=== PATIENT | female | born 1950 | race Caucasian/White ===

== ENCOUNTER 2024-02-24 10:23 | Day surgery (SDC) | payer OTHER, SELFPAY ==
[2024-02-24 10:45] LABS: Hematocrit 37.7 % (37.0-47.0); Hemoglobin 12.8 g/dL (12.0-16.0); Mean Corpuscular Hgb 29.7 pg (27.0-31.0); Mean Corpuscular Volume 87.5 fL (81.0-99.0); Platelet Count 296 10^3/uL (130-400); Red Blood Cell Count 4.31 10^6/uL (4.20-5.40); Red Cell Dist. Width 12.1 % (11.5-14.5); White Blood Cell Count 5.5 10^3/uL (4.8-10.8)
[2024-02-24 11:12] VITALS: BMI 28.2
[2024-02-24 11:13] LABS: Blood Urea Nitrogen 7 mg/dl (7-17); Calcium 9.5 mg/dl (8.4-10.2); Carbon Dioxide 32 mmol/L (22-30); Chloride 92 mmol/L (98-107); Glucose 131 mg/dl (70-99); Potassium 4.2 mmol/L (3.5-5.1); Sodium 135 mmol/L (135-145); eGFR > 60.00
[2024-02-24 11:14] VITALS: BP 141/69
[2024-02-24 11:15] LABS: Glucose - Point of Care 100 mg/dl (70-99)
--- NOTE | 2024-02-24 14:55 | ITS.CL.PACE ---
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
Pacemaker Implant
Procedure Report:
Date of Procedure: February 24, 2024
Patient : 1950
Procedure: Pacemaker Implantation.
Indication: Unexplained syncope with cardiovascular collapse, sinus bradycardia, first-degree AV delay, left bundle branch block, periods of 2-1 and 3-2 AV block on telemetry
�
Implants:
Pulse Generator: [employer]; Model# W1 DR 01 SN: [id number]
RA Lead: Medtronic; Model# 4574; SN: [id number]
RV Lead: Medtronic; Model# 4074; SN: [id number]
�
Technique: A time out was performed. The procedure site was identified. The patient was anesthetized by the anesthesia service. Preoperative sedation was administered. The patient was prepped and draped in the usual fashion. Local anesthetic was
applied to the left prepectoral subcutaneous tissue. A 3 inch incision was made 2.5 inches below the left clavicle. A subcutaneous pocket was created with blunt and sharp dissection and hemostasis controlled with Bovie cautery. The left axillary
vein was accessed within the pocket without difficulty. Hemostasis was excellent. The leads were introduced with 7 Fr hemostatic peel away introducer sheaths. The ventricular lead was placed at the right ventricular apex. The atrial lead was placed
in the right atrial appendage. 10 volt pacing did not capture the diaphragm. The leads were secured to the pectoralis muscle and fascia. The leads were appropriately attached to the device. The pocket was irrigated with antibiotic solution. The
device and leads were placed in the pocket. The incision was closed in three layers with absorbable suture. The estimated blood loss was minimal. There were no complications.��
�
Lead Analysis:
RA lead: P: 2.3 mV; Threshold: 1.5 V @ 0.5��ms; Impedance: 930 ohms.
RV lead: R: 11 mV; Threshold: 0.5 V @ 0.5��ms; Impedance: 1150 ohms.
�
Final Programming: AAIR�DDDR 60-120 beats a minute
�
Conclusion: Uncomplicated Medtronic pacemaker implant.
�
Recommendation: Routine post pacemaker care.
�
[2024-02-24 15:25] VITALS: BP 102/66
[2024-02-24 15:40] VITALS: BP 115/71
[2024-02-24 16:00] VITALS: BP 128/66
[2024-02-24 16:56] LABS: Glucose - Point of Care 219 mg/dl (70-99)
[2024-02-24] MEDS: NOVOLOG FLEXPEN-MODERATE RESISTANCE 3 UNITS SC (17:34)
--- NOTE | 2024-02-24 17:56 | PTCARENOTE ---
Pt received from pharmacy laboratory technician post pacemaker insertion in left anterior chest. Aquacell dressing dry and intact, no sign of bleeding or hematoma. Pt denies any discomfort, up independently in room. Activity restrictions reviewed with pt with help of
multi mission helicopter aircrewman and demonstration, pt states understanding. Immobilizer in place. Telemetry shows occasional atrial paced rhythm with LBBB. Pt had CXR in department.
[2024-02-24 18:51] VITALS: BP 129/74
[2024-02-24] MEDS: TYLENOL 650 MG PO ×2 (19:25→23:26)
[2024-02-24] MEDS: TENORMIN 50 MG PO (19:26)
[2024-02-24] MEDS: ANCEF 5 IV (19:27)
[2024-02-24] MEDS: NORVASC 5 MG PO (21:56)
[2024-02-24 21:57] VITALS: BP 135/79
[2024-02-24] MEDS: XANAX 1 MG PO (21:58)
[2024-02-24 22:14] LABS: Glucose - Point of Care 179 mg/dl (70-99)
--- NOTE | 2024-02-24 22:21 | PTCARENOTE ---
Received patient at change of shift. Patient awake, alert, and oriented sitting in bed. Immobilizer on, Aquacel and steri strips over left wall site-- clean, dry, and intact. No swelling or ecchymosis around site. Patient c/o 5/10 pain at site--
Tylenol given-- see JUN. BP 129/74, A-paced with BBB, first degree block and prolonged QT, 92% on room air. Discussed plan of care and activity restrictions. Patient verbalized understanding. Call malin within reach.
[2024-02-25 03:17] VITALS: BP 117/75
[2024-02-25] MEDS: TYLENOL 650 MG PO ×2 (03:27→09:04)
[2024-02-25] MEDS: ANCEF 5 IV (03:28)
[2024-02-25] MEDS: FLUSH (NSS) 1 FLUSH IV (03:28)
[2024-02-25 04:05] LABS: Hematocrit 36.5 % (37.0-47.0); Hemoglobin 12.2 g/dL (12.0-16.0); Mean Corp Hgb Conc. 33.4 g/dL (33.0-37.0); Mean Corpuscular Hgb 29.6 pg (27.0-31.0); Mean Corpuscular Volume 88.6 fL (81.0-99.0); Mean Platelet Volume 9.3 fL (7.4-10.4); Platelet Count 285 10^3/uL (130-400); Red Blood Cell Count 4.12 10^6/uL (4.20-5.40); Red Cell Dist. Width 11.9 % (11.5-14.5)
[2024-02-25 04:38] LABS: Blood Urea Nitrogen 9 mg/dl (7-17); Carbon Dioxide 28 mmol/L (22-30); Chloride 94 mmol/L (98-107); Estimated Creatinine Clearance 80 ml/min; Glucose 159 mg/dl (70-99); Magnesium 1.8 mg/dl (1.6-2.3); Potassium 4.6 mmol/L (3.5-5.1); Sodium 133 mmol/L (135-145); eGFR > 60.00
--- NOTE | 2024-02-25 07:49 | W.PN.CARDCBS ---
Addendum entered and electronically signed by Sam Siu MD 02/25/24 09:51:
Patient seen and examined
Agree with ANESTHESIA ATTENDING note and assessment
Agree with ANESTHESIA ATTENDING plan
Exam:
Site clean dry and intact
Alert and x 3
Nonfocal neurologically
Cor regular
Abdomen soft nontender positive bowel sounds
Impresssion:
Syncope/SSS
post DC PPM 02/24/24
HTN
HLD
NIDDM
LBBB
Anxiety
GERD
Plan:
post device site stable
tele Apaced with LBBB
CXR no PTX
Hold Metformin 48 hours post procedure
Activity restrictions reviewed with diplomatic interpreter/translator
inc check DCA 1 week
continue cardiac care with Dr. Epstein
home today
Original Note:
Today's Communication / Plan
-
stable for d/c home
Impression / Plan
-
PCP: Dr. eMdina
CDY: Dr. Epstein
Impresssion:
Syncope/SSS
post DC PPM 02/24/24
HTN
HLD
NIDDM
LBBB
Anxiety
GERD
Plan:
post device site stable
tele Apaced with LBBB
CXR no PTX
Hold Metformin 48 hours post procedure
Activity restrictions reviewed with diplomatic interpreter/translator
inc check DCA 1 week
continue cardiac care with Dr. Epstein
home today
Progress Note - Team Coordinator
Subjective
Date of Service: February 25, 2024
mild inc pain, no sob
Objective
Labs:
02/25/24 03:24
02/25/24 03:24
Labs
Hgb 12.2 g/dL (12.0-16.0) 02/25/24 03:24
Hct 36.5 % (37.0-47.0) L 02/25/24 03:24
Plt Count 285 10^3/uL (130-400) 02/25/24 03:24
Sodium 133 mmol/L (135-145) L 02/25/24 03:24
Potassium 4.6 mmol/L (3.5-5.1) 02/25/24 03:24
BUN 9 mg/dl (7-17) 02/25/24 03:24
Creatinine 0.5 mg/dL (0.6-1.0) L 02/25/24 03:24
Glucose 159 mg/dl (70-99) H 02/25/24 03:24
Vital Signs and I&O:
Vital Signs
Temp Pulse Resp BP Pulse Ox
98.6 F 63 16 117/75 93
02/25/24 03:15 02/25/24 06:30 02/25/24 03:15 02/25/24 03:17 02/25/24 03:15
Vital Signs
Temp Pulse Resp BP Pulse Ox
98.6 F 63 16 117/75 93
02/25/24 03:15 02/25/24 06:30 02/25/24 03:15 02/25/24 03:17 02/25/24 03:15
Physical Exam
Physical Exam
NAD, AOX3
S1, S2, RRR
CTAB, non labored no wheeze
SNTND Bsx4
L CW Dressing c/d/i no HT
[2024-02-25 08:24] VITALS: BP 140/79
[2024-02-25 08:53] LABS: Glucose - Point of Care 212 mg/dl (70-99)
[2024-02-25] MEDS: NOVOLOG FLEXPEN-MODERATE RESISTANCE 3 UNITS SC (09:03)
[2024-02-25] MEDS: PROTONIX 40 MG PO (09:04)
[2024-02-25] MEDS: CRESTOR 10 MG PO (09:04)
[2024-02-25] MEDS: ORETIC 25 MG PO (09:05)
[2024-02-25] MEDS: ASPIR LOW (ENTERIC COATED) 81 MG PO (09:05)
[2024-02-25] MEDS: TENORMIN 50 MG PO (09:05)
[2024-02-25] MEDS: BENICAR 40 MG PO (09:05)
[2024-02-25] MEDS: FLUAD (65 yr+) 2024-2025 FORMULA 0.5 ML IM (09:06)
--- NOTE | 2024-02-25 10:56 | CM ---
Chart reviewed. Patient is independent of ADLS, lives with her in a [address], 0 [address], 0 DME. Plan is for the patient to return home. CM to follow
[2024-02-25 11:46] LABS: Glycohemoglobin (HgbA1c) 6.6 % (4.0-5.6)
--- NOTE | 2024-02-25 12:53 | PTCARENOTE ---
Pt seen by Dr. Siu . Telemetry and IV device removed.. Extensive discharge instruction done with pt regarding activity guidelines, wound care, pain management, medications, reproting cares and concerns and follow up appt's. Very good
understanding demonstrated. Pt escorted out via wheelchair and pt discharged to home.
--- NOTE | 2024-02-25 14:32 | W.DS.TRANS ---
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
-
Discharge Instructions:
Discharge Diagnosis/Procedures Pacemaker implant
Diet Low Cholesterol
Driving Restrictions No driving for 1 week
Bathing Restrictions OK to Shower
Instructions:
Stand-Alone Forms: DC Inst - Implanted Device
Changes to Home Medications: No
Discharge Medications:
DC Medications w/original date entered in [employer]
Glucophage 500 mg PO BID 02/24/24
Tenormin 50 mg PO BID 02/24/24
alprazolam 1 mg tablet (Xanax) 1 mg PO TID PRN nervous 02/24/24
amlodipine 5 mg tablet (Norvasc) 5 mg PO HS 02/24/24
aspirin 81 mg capsule 81 mg PO DAILY 02/24/24
clonidine HCl 0.1 mg tablet 0.1 mg PO DAILY 02/24/24
clotrimazole-betamethasone 1 %-0.05 % topical cream 1 applic topical BID 02/24/24
hydrochlorothiazide 25 mg PO DAILY 02/24/24
ibuprofen 200 mg tablet (Advil) 600 mg PO DAILY 02/24/24
olmesartan 40 mg tablet (Benicar) 40 mg PO DAILY 02/24/24
omeprazole 20 mg capsule,delayed release 20 mg PO DAILY 02/24/24
rosuvastatin 10 mg tablet (Crestor) 10 mg PO DAILY 02/24/24
Home Medication Changes
Pending Results: No
== END 2024-02-25 13:00 | disposition home or self-care (01) ==
LOC: CATH 10:23
PROVIDERS: Nurse Practitioner Adult Health; ATTENDING PHYSICIAN Internal Medicine Cardiovascular Disease; FAMILY PHYSICIAN Family Medicine
DX: I49.5 Sick sinus syndrome (principal); I44.7 Left bundle-branch block, unspecified; R55 Syncope and collapse; I10 Essential (primary) hypertension; E78.5 Hyperlipidemia, unspecified; E11.9 Type 2 diabetes mellitus without complications; K21.9 Gastro-esophageal reflux disease without esophagitis; F41.9 Anxiety disorder, unspecified; Z79.82 Long term (current) use of aspirin
CPT/HCPCS: 33208; C1892; 71045; 80048; 82962; 83036; 83735; 85027; 87070; 90662; 93005; C1785; C1898; G0008; Q9967